=== PATIENT | male | born 1965 | race African-American/Black ===

== ENCOUNTER 2019-04-21 12:59 | Emergency (ER) | payer OTHER ==
[~2019-04-21] VITALS: Ht 175.3 cm; Wt 102.3 kg
[2019-04-21] MEDS ORDERED: IBUP80TA PO (13:04)
[2019-04-21] MEDS ORDERED: KETOROLAC 60 MG/2 ML VIAL (J1885) IM ONE (13:45)
--- NOTE | 2019-04-21 14:06 | REP ---
Clinical: Trauma. Technique: Internal rotation, external rotation, and Y view of the right shoulder. Findings: Mild arthritic changes include cortical irregularity and spurring at the acromioclavicular joint as well as small adjacent partially calcified loose body. Small calcification adjacent to the greater tuberosity of the humeral head is also identified suggesting tendinopathy. No acute fracture dislocation. Impression: Mild arthritic changes. No acute fracture or dislocation. Electronically Signed by Ty Fu MD 04/21/2019 01:57 P
[2019-04-21 14:40] VITALS: BP 129/84
[2019-04-21] MEDS ORDERED: PRED20TA PO (14:41)
[2019-04-21] MEDS ORDERED: MOBI4TAB PO (14:41)
[2019-04-21] MEDS ORDERED: ZANA4TAB PO (14:41)
== END 2019-04-21 14:49 | disposition home or self-care (01) ==
LOC: M ED 12:59
DX: M19.011 Primary osteoarthritis, right shoulder (principal)
CPT/HCPCS: 73030; 96372; 99284; J1885